=== PATIENT | male | born 1960 | race Caucasian/White ===

== ENCOUNTER 2023-04-01 07:03 | Outpatient (RCR) | payer OTHER, SELFPAY | END 2023-04-01 23:59 | disposition home or self-care (01) | LOC: RPT 07:03 | PROVIDERS: ATTENDING PHYSICIAN Physician Assistant | DX: M79.12 Myalgia of auxiliary muscles, head and neck (principal); R29.3 Abnormal posture | CPT/HCPCS: 97112; 97162 ==

== ENCOUNTER → 2023-06-22 10:51 | Outpatient (REF) | payer OTHER, SELFPAY | LOC: HWRAD 10:51 | PROVIDERS: ATTENDING PHYSICIAN Physician Assistant | DX: Z87.891 Personal history of nicotine dependence (principal) | CPT/HCPCS: 71271 ==

== ENCOUNTER → 2023-08-05 10:16 | Outpatient (REF) | payer OTHER, SELFPAY | LOC: RAD 10:16 | PROVIDERS: ATTENDING PHYSICIAN Physician Assistant | DX: E04.1 Nontoxic single thyroid nodule (principal); E04.2 Nontoxic multinodular goiter | CPT/HCPCS: 76536 ==

== ENCOUNTER → 2024-06-29 11:07 | Outpatient (REF) | payer OTHER, SELFPAY | LOC: HWRAD 11:07 | PROVIDERS: ATTENDING PHYSICIAN Physician Assistant | DX: Z87.891 Personal history of nicotine dependence (principal) | CPT/HCPCS: 71271 ==